=== PATIENT | female | born 1955 | race Caucasian/White ===

== ENCOUNTER 2017-03-04 14:22 | Emergency (ER) | payer OTHER ==
[2017-03-04] MEDS ORDERED: HYDROcodone/Acetaminophen 10/325 mg Tablet ONE (15:13)
[2017-03-04] MEDS ORDERED: Ibuprofen 200 MG TAB ONE (15:13)
[2017-03-04] MEDS ORDERED: Diazepam 10 MG/2 ML SYRINGE ONE (15:13)
== END 2017-03-04 16:18 | disposition home or self-care (01) ==
LOC: ERS 14:22
DX: S39.012A Strain of muscle, fascia and tendon of lower back, initial encounter (principal); E11.9 Type 2 diabetes mellitus without complications; I10 Essential (primary) hypertension; Z79.891 Long term (current) use of opiate analgesic; Z79.899 Other long term (current) drug therapy; V49.9XXA Car occupant (driver) (passenger) injured in unspecified traffic accident, initial encounter
CPT/HCPCS: 96372; J3360